=== PATIENT | female | born 1980 | race Caucasian/White ===

== ENCOUNTER 2017-02-16 09:44 | Inpatient (IN) | payer OTHER ==
[~2017-02-16] VITALS: Ht 165.1 cm; Wt 133.1 kg
[2017-02-16 09:44] VITALS: BP 129/77
[~2017-02-16 09:44] MED LIST: ALBUTEROL0.09 MG/A1 INH; BIAXIN500 MG PO; CELEXA40 MG PO; HYDR12.5C PO; HYDROCODONE BIT1 T11 PO; METFORMIN1000 MG PO; NAPROSYN375 MG PO; NORCET 500 MG-51 CAP PO; PRENATAL1 TA1 PO; PRILOSEC20 MG PO; PROVENTIL0.09 MG/AC IH
[2017-02-16] MEDS ORDERED: METFORMIN HCL1000 MG PO (09:56)
[2017-02-16] MEDS ORDERED: IBU800 M1 PO (09:56)
[2017-02-16] MEDS ORDERED: FAMOTIDINE40 MG PO (09:56)
[2017-02-16] MEDS ORDERED: HYDROCHLOROTH12.5 M3 PO (09:57)
[2017-02-16 10:06] LABS: BASO # 0.1 10*3/uL (0.0-0.1); BASO % 0.9 % (0.0-1.0); EOS # 0.4 10*3/uL (0.0-0.4); EOS % 4.3 % (1.0-4.0); LYMPH # 3.2 10*3/uL (1.3-4.4); MEAN CELL VOLUME 89.5 fl (81.0-99.0); MEAN CORPUSCULAR HGB 30.6 pg (27.0-31.0); MEAN CORPUSCULAR HGB CONC 34.1 g/dl (33.0-37.0); MEAN PLATELET VOLUME 9.5 fl (9.6-12.3); MONO # 0.6 10*3/uL (0.1-1.0); NEUT # 4.9 10*3/uL (2.3-7.9); NEUT % 53.5 % (47.0-73.0); PLATELET COUNT AUTOMATED 248 10*3/uL (130-400); RED BLOOD COUNT 4.58 10*6/uL (4.10-5.10); RED CELL DISTRI WIDTH 12.7 % (0-14.5); WHITE BLOOD COUNT 9.1 10*3/uL (4.8-10.8)
[2017-02-16 10:15] LABS: PROTHROMBIN TIME 10.4 SECONDS (9.0-12.4)
[2017-02-16 10:23] LABS: ALBUMIN 3.2 gm/dl (3.1-4.5); ALKALINE PHOSPHATASE 84 U/L (45-117); BILIRUBIN, TOTAL 1.7 mg/dl (0.2-1.0); BUN 11 mg/dl (7-24); CARBON DIOXIDE 28 mmol/L (21-32); CHLORIDE 103 mmol/L (98-107); EST GLOM FILT AFRICAN AMERICAN > 60 ml/min; GLUCOSE 163 mg/dL (65-99); MAGNESIUM 1.9 mg/dL (1.5-2.1); POTASSIUM 3.5 mmol/L (3.5-5.1); SGOT/AST 46 IU/L (3-35); SGPT/ALT 66 U/L (12-78); SODIUM 140 mmol/L (136-145); TOTAL PROTEIN 7.4 gm/dL (6.4-8.2)
[2017-02-16 10:27] LABS: TROPONIN I < 0.015 ng/ml (<0.045)
[2017-02-16 11:55] VITALS: BP 133/74
[2017-02-16 12:15] VITALS: BP 130/70
[2017-02-16] MEDS ORDERED: CELEXA40 MG PO (12:33)
[2017-02-16 16:00] VITALS: BP 126/88
[2017-02-16 18:40] LABS: BILIRUBIN 1+ (NEGATIVE); BLOOD 2+ (NEGATIVE); CLARITY SL CLOUDY (CLEAR); COLOR YELLOW (YELLOW); GLUCOSE NEGATIVE (NEGATIVE); KETONE NEGATIVE (NEGATIVE); LEUKO ESTERASE NEGATIVE (NEGATIVE); NITRITE NEGATIVE (NEGATIVE); PH 5.5 (5.0-9.0); PROTEIN NEGATIVE (NEGATIVE); SPECIFIC GRAVITY >= 1.030 (1.005-1.030); UROBILINOGEN 0.2 E.U./dl (0.2-1.0)
[2017-02-16 18:47] LABS: BACTERIA 2+; EPITHELIAL CELLS 15-20
[2017-02-16 18:48] LABS: MUCOUS TRACE; URINE REFLEX COMMENT YES (NO)
[2017-02-16 20:00] VITALS: BP 117/57
[2017-02-17] VITALS: BP 103/56
[2017-02-17 06:51] LABS: BASO # 0.1 10*3/uL (0.0-0.1); BASO % 0.7 % (0.0-1.0); EOS # 0.5 10*3/uL (0.0-0.4); EOS % 5.1 % (1.0-4.0); HEMATOCRIT 40.3 % (37.0-47.0); HEMOGLOBIN 13.5 g/dl (12.0-16.0); LYMPH # 3.2 10*3/uL (1.3-4.4); LYMPH % 31.9 % (27.0-41.0); MEAN CORPUSCULAR HGB 30.1 pg (27.0-31.0); MEAN CORPUSCULAR HGB CONC 33.5 g/dl (33.0-37.0); MEAN PLATELET VOLUME 9.8 fl (9.6-12.3); MONO # 0.5 10*3/uL (0.1-1.0); MONO % 5.3 % (3.0-9.0); NEUT # 5.7 10*3/uL (2.3-7.9); NEUT % 56.6 % (47.0-73.0); PLATELET COUNT AUTOMATED 222 10*3/uL (130-400); RED BLOOD COUNT 4.48 10*6/uL (4.10-5.10); RED CELL DISTRI WIDTH 12.8 % (0-14.5)
[2017-02-17 07:06] LABS: HEMOGLOBIN A1c 7.7 % (4.8-5.6)
[2017-02-17 07:28] LABS: PROTHROMBIN TIME 10.3 SECONDS (9.0-12.4)
[2017-02-17 07:29] LABS: CHLORIDE 103 mmol/L (98-107); CHOLESTEROL 221 mg/dL (<200); POTASSIUM 3.8 mmol/L (3.5-5.1); SODIUM 138 mmol/L (136-145)
[2017-02-17 07:37] LABS: ALKALINE PHOSPHATASE 74 U/L (45-117); BILIRUBIN, TOTAL 1.7 mg/dl (0.2-1.0); BUN 15 mg/dl (7-24); CARBON DIOXIDE 29 mmol/L (21-32); EST GLOM FILT AFRICAN AMERICAN > 60 ml/min; FREE T4 1.16 ng/dl (0.76-1.46); GLUCOSE 152 mg/dL (65-99); HDL CHOLESTEROL 40 mg/dl (40-60); LDL CHOLESTEROL 145 mg/dL (9-159); MAGNESIUM 2.5 mg/dL (1.5-2.1); SGOT/AST 36 IU/L (3-35); SGPT/ALT 58 U/L (12-78); TRIGLYCERIDES 179 mg/dl (<150); VLDL CHOLESTEROL 36 mg/dL (6-40)
[2017-02-17 07:49] LABS: FOLIC ACID 10.91 ng/mL (>5.38); VITAMIN D, 25-HYDROXY 23.2 ng/mL (30-100)
[2017-02-17 08:00] VITALS: BP 107/55
[2017-02-17 12:00] VITALS: BP 142/70
[2017-02-17 16:00] VITALS: BP 136/66
[2017-02-17 20:00] VITALS: BP 118/64
[2017-02-18] VITALS: BP 119/63
[2017-02-18 06:30] LABS: BASO # 0.1 10*3/uL (0.0-0.1); BASO % 0.7 % (0.0-1.0); EOS # 0.4 10*3/uL (0.0-0.4); HEMATOCRIT 42.2 % (37.0-47.0); HEMOGLOBIN 13.9 g/dl (12.0-16.0); LYMPH # 3.4 10*3/uL (1.3-4.4); LYMPH % 38.5 % (27.0-41.0); MEAN CELL VOLUME 90.6 fl (81.0-99.0); MEAN CORPUSCULAR HGB 29.8 pg (27.0-31.0); MEAN CORPUSCULAR HGB CONC 32.9 g/dl (33.0-37.0); MEAN PLATELET VOLUME 9.8 fl (9.6-12.3); MONO # 0.6 10*3/uL (0.1-1.0); MONO % 6.4 % (3.0-9.0); NEUT # 4.3 10*3/uL (2.3-7.9); NEUT % 49.1 % (47.0-73.0); PLATELET COUNT AUTOMATED 225 10*3/uL (130-400); RED BLOOD COUNT 4.66 10*6/uL (4.10-5.10); RED CELL DISTRI WIDTH 12.8 % (0-14.5); WHITE BLOOD COUNT 8.8 10*3/uL (4.8-10.8)
[2017-02-18 06:48] LABS: BUN 13 mg/dl (7-24); CARBON DIOXIDE 31 mmol/L (21-32); CHLORIDE 102 mmol/L (98-107); EST GLOM FILT AFRICAN AMERICAN > 60 ml/min; GLUCOSE 141 mg/dL (65-99); SODIUM 139 mmol/L (136-145)
[2017-02-18 08:00] VITALS: BP 117/59
[2017-02-18] MEDS ORDERED: VITAMIN D1000 IU PO (11:15)
[2017-02-18 12:00] VITALS: BP 125/68
== END 2017-02-18 13:07 | disposition home or self-care (01) | DRG 313 ==
LOC: ED 09:44 → EDHOLD 11:48 → 4E 11:48
PROVIDERS: Hospitalist; Internal Medicine; Physician Assistant
DX: R07.82 Intercostal pain (principal); Z68.42 Body mass index [BMI] 45.0-49.9, adult; K76.0 Fatty (change of) liver, not elsewhere classified; E66.01 Morbid (severe) obesity due to excess calories; E28.2 Polycystic ovarian syndrome; I10 Essential (primary) hypertension; K21.9 Gastro-esophageal reflux disease without esophagitis; E55.9 Vitamin D deficiency, unspecified; E11.9 Type 2 diabetes mellitus without complications; N20.0 Calculus of kidney; Z83.3 Family history of diabetes mellitus; Z82.3 Family history of stroke; Z79.84 Long term (current) use of oral hypoglycemic drugs; Z79.899 Other long term (current) drug therapy

== ENCOUNTER 2017-03-13 10:37 | Emergency (ER) | payer OTHER ==
[~2017-03-13] VITALS: Ht 162.5 cm; Wt 104.3 kg
[~2017-03-13 10:37] MED LIST changes: +FAMOTIDINE40 MG PO; +HYDROCHLOROTH12.5 M3 PO; +IBU800 M1 PO; +METFORMIN HCL1000 MG PO; +VITAMIN D1000 IU PO
[2017-03-13] MEDS ORDERED: NAPROSYN500 MG PO (10:54)
== END 2017-03-13 11:36 | disposition home or self-care (01) ==
LOC: ED 10:37
DX: G56.01 Carpal tunnel syndrome, right upper limb (principal); Z79.899 Other long term (current) drug therapy

== ENCOUNTER 2017-04-21 23:50 | Inpatient (IN) | payer OTHER ==
[~2017-04-21] VITALS: Ht 162.5 cm; Wt 131.5 kg
[2017-04-21 23:50] VITALS: BP 154/72
[~2017-04-21 23:50] MED LIST changes: +NAPROSYN500 MG PO
[2017-04-22] VITALS (12 sets, daily range): BP systolic 126–151; BP diastolic 63–90
[2017-04-22 00:11] LABS: BASO # 0.1 10*3/uL (0.0-0.1); BASO % 0.7 % (0.0-1.0); EOS # 0.3 10*3/uL (0.0-0.4); EOS % 2.7 % (1.0-4.0); HEMATOCRIT 43.8 % (37.0-47.0); HEMOGLOBIN 14.4 g/dl (12.0-16.0); LYMPH # 4.7 10*3/uL (1.3-4.4); LYMPH % 41.5 % (27.0-41.0); MEAN CELL VOLUME 90.9 fl (81.0-99.0); MEAN CORPUSCULAR HGB 29.9 pg (27.0-31.0); MEAN CORPUSCULAR HGB CONC 32.9 g/dl (33.0-37.0); MONO # 0.7 10*3/uL (0.1-1.0); NEUT # 5.6 10*3/uL (2.3-7.9); NEUT % 48.7 % (47.0-73.0); PLATELET COUNT AUTOMATED 245 10*3/uL (130-400); RED BLOOD COUNT 4.82 10*6/uL (4.10-5.10); RED CELL DISTRI WIDTH 12.6 % (0-14.5); WHITE BLOOD COUNT 11.4 10*3/uL (4.8-10.8)
[2017-04-22 00:22] LABS: ACT PARTIAL THROMBO TIME 24.3 SECONDS (20.8-31.5)
[2017-04-22 00:29] LABS: ALBUMIN 3.4 gm/dl (3.1-4.5); ALKALINE PHOSPHATASE 82 U/L (45-117); BUN 13 mg/dl (7-24); CHLORIDE 105 mmol/L (98-107); CREATININE 1.03 mg/dL (0.55-1.02); MAGNESIUM 1.8 mg/dL (1.5-2.1); POTASSIUM 3.7 mmol/L (3.5-5.1); SGOT/AST 29 IU/L (3-35); SGPT/ALT 50 U/L (12-78); SODIUM 140 mmol/L (136-145); TOTAL PROTEIN 7.4 gm/dL (6.4-8.2)
[2017-04-22 00:30] LABS: TROPONIN I < 0.015 ng/ml (<0.045)
[2017-04-22 02:24] LABS: BILIRUBIN NEGATIVE (NEGATIVE); BLOOD NEGATIVE (NEGATIVE); CLARITY SL CLOUDY (CLEAR); COLOR YELLOW (YELLOW); GLUCOSE NEGATIVE (NEGATIVE); KETONE NEGATIVE (NEGATIVE); LEUKO ESTERASE NEGATIVE (NEGATIVE); NITRITE NEGATIVE (NEGATIVE); UROBILINOGEN 0.2 E.U./dl (0.2-1.0)
[2017-04-22 02:30] LABS: BACTERIA 3+
[2017-04-22 06:26] LABS: BASO # 0.1 10*3/uL (0.0-0.1); BASO % 0.6 % (0.0-1.0); EOS # 0.4 10*3/uL (0.0-0.4); EOS % 3.7 % (1.0-4.0); HEMATOCRIT 39.3 % (37.0-47.0); HEMOGLOBIN 13.1 g/dl (12.0-16.0); LYMPH # 3.7 10*3/uL (1.3-4.4); LYMPH % 37.9 % (27.0-41.0); MEAN CORPUSCULAR HGB 30.3 pg (27.0-31.0); MEAN CORPUSCULAR HGB CONC 33.3 g/dl (33.0-37.0); MEAN PLATELET VOLUME 9.4 fl (9.6-12.3); MONO # 0.5 10*3/uL (0.1-1.0); MONO % 5.3 % (3.0-9.0); NEUT # 5.1 10*3/uL (2.3-7.9); NEUT % 52.3 % (47.0-73.0); PLATELET COUNT AUTOMATED 200 10*3/uL (130-400); RED BLOOD COUNT 4.32 10*6/uL (4.10-5.10); RED CELL DISTRI WIDTH 12.6 % (0-14.5); WHITE BLOOD COUNT 9.8 10*3/uL (4.8-10.8)
[2017-04-22 06:44] LABS: ALBUMIN 3.1 gm/dl (3.1-4.5); ALKALINE PHOSPHATASE 72 U/L (45-117); BUN 13 mg/dl (7-24); CHLORIDE 106 mmol/L (98-107); CHOLESTEROL 207 mg/dL (<200); CREATININE 0.85 mg/dL (0.55-1.02); HDL CHOLESTEROL 34 mg/dl (40-60); LDL CHOLESTEROL 127 mg/dL (9-159); MAGNESIUM 1.8 mg/dL (1.5-2.1); PHOSPHOROUS 3.6 mg/dL (2.5-4.9); POTASSIUM 3.8 mmol/L (3.5-5.1); SGOT/AST 26 IU/L (3-35); SGPT/ALT 45 U/L (12-78); SODIUM 139 mmol/L (136-145); TOTAL PROTEIN 6.8 gm/dL (6.4-8.2); TRIGLYCERIDES 232 mg/dl (<150); VLDL CHOLESTEROL 46 mg/dL (6-40)
[2017-04-22 06:46] LABS: FREE T4 1.28 ng/dl (0.76-1.46)
[2017-04-22 06:47] LABS: CKMB 1.2 ng/ml (0.5-3.6)
[2017-04-22 06:56] LABS: ACT PARTIAL THROMBO TIME 25.4 SECONDS (20.8-31.5)
--- NOTE | 2017-04-22 07:10 | NUR ---
REPORT FROM [facility] AT THIS TIME.
--- NOTE | 2017-04-22 07:40 | NUR ---
PATIENT SLEEPING AT THIS TIME. VITAS STABLE AND DOCUMTED. PATIENT ON FILTER TENDER. IV LINE PATENT AND FLUSHES WELL.
[2017-04-22 08:24] LABS: VITAMIN D, 25-HYDROXY 17.3 ng/mL (30-100)
--- NOTE | 2017-04-22 09:46 | NUR ---
PATIENT RESTING IN ROOM. REPORTS CHEST PAIN /, BUT STATES PAIN IS BETTER THAN IT WAS. VITALS STABLE AND DOCUMENTED.
--- NOTE | 2017-04-22 11:45 | NUR ---
A 37, admitted to , under the services of KYAW Horne DO with a diagnosis of chest pain. Chief complaint is chest pain. Patient arrived via stretcher from ER. Monitor applied. Initial assessment completed. Vital signs taken and recorded. KYAW HORNE DO notified of admission to the unit. Orders received. See assessment for past medical history, medications and allergies. Patient and/or family oriented to unit. [address] visitation policy reviewed. Clothing/patient valuable form completed. CAROL JEFF
[2017-04-22] MEDS ORDERED: LIPITOR40 MG PO (12:16)
--- NOTE | 2017-04-22 15:05 | NUR ---
Discharge instructions reviewed with patient/family. Patient receptive and verbalizes understanding. Follow-up care arranged. Written instructions given to patient/family. CAROL JEFF
== END 2017-04-22 15:05 | disposition home or self-care (01) | DRG 682 ==
LOC: ED 23:50 → 4E 04-22 00:48 → EDHOLD 04-22 00:48 → 4E 04-22 11:15
PROVIDERS: Hospitalist; Student in an Organized Health Care Education/Training Program; ADMIT Internal Medicine
DX: N17.0 Acute kidney failure with tubular necrosis (principal); J18.9 Pneumonia, unspecified organism; E44.0 Moderate protein-calorie malnutrition; K76.0 Fatty (change of) liver, not elsewhere classified; Z68.42 Body mass index [BMI] 45.0-49.9, adult; K21.9 Gastro-esophageal reflux disease without esophagitis; F41.9 Anxiety disorder, unspecified; R07.89 Other chest pain; E55.9 Vitamin D deficiency, unspecified; E28.2 Polycystic ovarian syndrome; R94.31 Abnormal electrocardiogram [ECG] [EKG]; E78.2 Mixed hyperlipidemia; E66.01 Morbid (severe) obesity due to excess calories; E11.9 Type 2 diabetes mellitus without complications; Z79.84 Long term (current) use of oral hypoglycemic drugs; Z79.899 Other long term (current) drug therapy; Z83.3 Family history of diabetes mellitus; Z82.3 Family history of stroke; Z80.9 Family history of malignant neoplasm, unspecified

== ENCOUNTER 2017-05-08 18:21 | Emergency (ER) | payer OTHER ==
[~2017-05-08 18:21] MED LIST changes: +LIPITOR40 MG PO
[2017-05-08] MEDS ORDERED: AMOXICILLIN500 M2 PO (19:07)
[2017-05-08] MEDS ORDERED: PREDNISONE20 M1 PO (19:07)
== END 2017-05-08 19:12 | disposition home or self-care (01) ==
LOC: ED 18:21
DX: J02.9 Acute pharyngitis, unspecified (principal); Z79.899 Other long term (current) drug therapy

== ENCOUNTER → 2017-05-14 | Outpatient (CLI) | payer OTHER ==
[~2017-05-14] MED LIST changes: +AMOXICILLIN500 M2 PO; +PREDNISONE20 M1 PO
[2017-05-14 12:25] LABS: BASO # 0.1 10*3/uL (0.0-0.1); BASO % 0.8 % (0.0-1.0); EOS # 0.5 10*3/uL (0.0-0.4); EOS % 4.5 % (1.0-4.0); HEMATOCRIT 42.9 % (37.0-47.0); HEMOGLOBIN 14.3 g/dl (12.0-16.0); LYMPH # 3.8 10*3/uL (1.3-4.4); LYMPH % 36.5 % (27.0-41.0); MEAN CELL VOLUME 90.5 fl (81.0-99.0); MEAN CORPUSCULAR HGB 30.2 pg (27.0-31.0); MEAN CORPUSCULAR HGB CONC 33.3 g/dl (33.0-37.0); MONO # 0.6 10*3/uL (0.1-1.0); MONO % 5.3 % (3.0-9.0); NEUT # 5.4 10*3/uL (2.3-7.9); NEUT % 51.9 % (47.0-73.0); PLATELET COUNT AUTOMATED 243 10*3/uL (130-400); RED BLOOD COUNT 4.74 10*6/uL (4.10-5.10); RED CELL DISTRI WIDTH 12.5 % (0-14.5); WHITE BLOOD COUNT 10.3 10*3/uL (4.8-10.8)
[2017-05-14 12:27] LABS: ALBUMIN 3.3 gm/dl (3.1-4.5); ALKALINE PHOSPHATASE 77 U/L (45-117); BUN 11 mg/dl (7-24); CHLORIDE 102 mmol/L (98-107); CREATININE 0.94 mg/dL (0.55-1.02); POTASSIUM 3.7 mmol/L (3.5-5.1); SGOT/AST 31 IU/L (3-35); SGPT/ALT 45 U/L (12-78); SODIUM 138 mmol/L (136-145); TOTAL PROTEIN 7.2 gm/dL (6.4-8.2)
[2017-05-15 08:11] LABS: DHEA SULFATE 004020 35.7 ug/dL (57.3-279.2); FOLLICLE STIMULATING HORMONE 5.7 mIU/mL (.); LUTEINIZING HORMONE 004283 12.7 mIU/mL (.); PROLACTIN 004465 11.3 ng/mL (4.8-23.3)
== END | disposition home or self-care (01) ==
LOC: LAB 11:19
PROVIDERS: Family Medicine Adult Medicine
DX: E28.2 Polycystic ovarian syndrome (principal)

== ENCOUNTER 2017-12-08 09:16 | Emergency (ER) | payer OTHER ==
[~2017-12-08] VITALS: Ht 162.5 cm; Wt 104.3 kg
[2017-12-08 10:11] LABS: BILIRUBIN NEGATIVE (NEGATIVE); BLOOD 3+ (NEGATIVE); CLARITY CLOUDY (CLEAR); COLOR YELLOW (YELLOW); GLUCOSE NEGATIVE (NEGATIVE); KETONE NEGATIVE (NEGATIVE); NITRITE NEGATIVE (NEGATIVE); PH 5.5 (5.0-9.0); SPECIFIC GRAVITY >= 1.030 (1.005-1.030); UROBILINOGEN 0.2 E.U./dl (0.2-1.0)
[2017-12-08 10:12] LABS: BASO # 0.1 10*3/uL (0.0-0.1); BASO % 0.9 % (0.0-1.0); EOS # 0.3 10*3/uL (0.0-0.4); EOS % 2.8 % (1.0-4.0); HEMOGLOBIN 14.1 g/dl (12.0-16.0); LYMPH # 2.9 10*3/uL (1.3-4.4); LYMPH % 29.8 % (27.0-41.0); MEAN CELL VOLUME 90.3 fl (81.0-99.0); MEAN PLATELET VOLUME 9.5 fl (9.6-12.3); MONO # 0.7 10*3/uL (0.1-1.0); NEUT # 5.8 10*3/uL (2.3-7.9); PLATELET COUNT AUTOMATED 284 10*3/uL (130-400); RED BLOOD COUNT 4.87 10*6/uL (4.10-5.10); RED CELL DISTRI WIDTH 12.9 % (0-14.5); WHITE BLOOD COUNT 9.8 10*3/uL (4.8-10.8)
[2017-12-08 10:24] LABS: LEUKO ESTERASE NEGATIVE (NEGATIVE)
[2017-12-08 10:24] LABS: ALBUMIN 3.4 gm/dl (3.1-4.5); ALKALINE PHOSPHATASE 79 U/L (45-117); BUN 12 mg/dl (7-24); CHLORIDE 104 mmol/L (98-107); CREATININE 1.11 mg/dL (0.55-1.02); LIPASE 68 U/L (73-393); SGOT/AST 21 IU/L (3-35); SGPT/ALT 32 U/L (12-78); SODIUM 140 mmol/L (136-145); TOTAL PROTEIN 7.8 gm/dL (6.4-8.2)
[2017-12-08 10:25] LABS: BACTERIA 1+; CALCIUM OXALATE CRYSTALS 3+; RBC 41-50 rbc/hpf (0-2)
[2017-12-08] MEDS ORDERED: KETOROLAC10 MG PO (12:08)
[2017-12-08] MEDS ORDERED: FLOMAX0.4 MG PO (12:08)
== END 2017-12-08 12:30 | disposition home or self-care (01) ==
LOC: ED 09:16
PROVIDERS: Nurse Practitioner Family
DX: N20.0 Calculus of kidney (principal); R10.11 Right upper quadrant pain; E11.9 Type 2 diabetes mellitus without complications; K21.9 Gastro-esophageal reflux disease without esophagitis; I10 Essential (primary) hypertension; E66.01 Morbid (severe) obesity due to excess calories; E78.00 Pure hypercholesterolemia, unspecified; Z79.899 Other long term (current) drug therapy

== ENCOUNTER → 2018-01-20 | Outpatient (CLI) | payer OTHER ==
[~2018-01-20] MED LIST changes: +BENADRYL25 M2 PO; +CEFADROXIL500 M1 PO; +FLOMAX0.4 MG PO; +KETOROLAC10 MG PO
[2018-01-20 09:23] LABS: BUN 11 mg/dl (7-24); CHLORIDE 106 mmol/L (98-107); CREATININE 1.06 mg/dL (0.55-1.02); SODIUM 142 mmol/L (136-145)
[2018-01-20 09:25] LABS: POTASSIUM 4.1 mmol/L (3.5-5.1)
== END ==
LOC: LAB 08:11
PROVIDERS: Nurse Practitioner Primary Care
DX: R60.9 Edema, unspecified (principal)

== ENCOUNTER 2018-02-20 16:05 | Emergency (ER) | payer OTHER ==
[~2018-02-20] VITALS: Ht 162.5 cm; Wt 99.8 kg
[~2018-02-20 16:05] MED LIST changes: -BENADRYL25 M2 PO; -CEFADROXIL500 M1 PO
[2018-02-20] MEDS ORDERED: CEFADROXIL500 M1 PO (16:12)
[2018-02-20] MEDS ORDERED: BENADRYL25 M2 PO (16:12)
== END 2018-02-20 16:30 | disposition home or self-care (01) ==
LOC: ED 16:05
DX: S80.861A Insect bite (nonvenomous), right lower leg, initial encounter (principal); Z79.899 Other long term (current) drug therapy; W57.XXXA Bitten or stung by nonvenomous insect and other nonvenomous arthropods, initial encounter; Y93.89 Activity, other specified; Y92.89 Other specified places as the place of occurrence of the external cause; Y99.8 Other external cause status

== ENCOUNTER 2018-04-05 10:53 | Emergency (ER) | payer OTHER ==
[~2018-04-05] VITALS: Wt 99.8 kg
[~2018-04-05 10:53] MED LIST changes: +BENADRYL25 M2 PO; +CEFADROXIL500 M1 PO
[2018-04-05 11:47] LABS: BASO # 0.1 10*3/uL (0.0-0.1); BASO % 0.7 % (0.0-1.0); EOS # 0.5 10*3/uL (0.0-0.4); EOS % 4.3 % (1.0-4.0); HEMATOCRIT 43.2 % (37.0-47.0); HEMOGLOBIN 14.1 g/dl (12.0-16.0); LYMPH # 2.8 10*3/uL (1.3-4.4); LYMPH % 22.2 % (27.0-41.0); MEAN CELL VOLUME 90.2 fl (81.0-99.0); MEAN CORPUSCULAR HGB 29.4 pg (27.0-31.0); MEAN CORPUSCULAR HGB CONC 32.6 g/dl (33.0-37.0); MEAN PLATELET VOLUME 9.7 fl (9.6-12.3); MONO # 0.6 10*3/uL (0.1-1.0); MONO % 4.7 % (3.0-9.0); NEUT # 8.4 10*3/uL (2.3-7.9); NEUT % 67.5 % (47.0-73.0); PLATELET COUNT AUTOMATED 268 10*3/uL (130-400); RED BLOOD COUNT 4.79 10*6/uL (4.10-5.10); RED CELL DISTRI WIDTH 13.1 % (0-14.5); WHITE BLOOD COUNT 12.5 10*3/uL (4.8-10.8)
[2018-04-05 12:04] LABS: ALBUMIN 3.4 gm/dl (3.1-4.5); ALKALINE PHOSPHATASE 78 U/L (45-117); BETA-HCG, QUANT < 1.0 mIU/mL (1-3); BUN 11 mg/dl (7-24); CHLORIDE 104 mmol/L (98-107); CREATININE 1.23 mg/dL (0.55-1.02); LIPASE 73 U/L (73-393); POTASSIUM 3.5 mmol/L (3.5-5.1); SGOT/AST 18 IU/L (3-35); SGPT/ALT 27 U/L (12-78); SODIUM 139 mmol/L (136-145)
[2018-04-05 13:09] LABS: BILIRUBIN 1+ (NEGATIVE); BLOOD 2+ (NEGATIVE); CLARITY CLOUDY (CLEAR); COLOR YELLOW (YELLOW); GLUCOSE NEGATIVE (NEGATIVE); KETONE NEGATIVE (NEGATIVE); LEUKO ESTERASE 2+ (NEGATIVE); NITRITE POSITIVE (NEGATIVE); SPECIFIC GRAVITY >= 1.030 (1.005-1.030)
[2018-04-05 13:22] LABS: BACTERIA 2+; WBC TNTC wbc/hpf (0-5)
[2018-04-05] MEDS ORDERED: CIPRO500 MG PO (14:54)
[2018-04-05] MEDS ORDERED: FLOMAX0.4 MG PO (14:54)
[2018-04-05] MEDS ORDERED: NORCO 5-325 TA1 EACH PO (14:54)
[2018-04-05] MEDS ORDERED: IBUPROFEN600 MG PO (14:54)
[2018-04-05] MEDS ORDERED: PHENERGAN25 M3 PO (14:54)
== END 2018-04-05 15:03 | disposition home or self-care (01) ==
LOC: ED 10:53
PROVIDERS: Emergency Medicine
DX: N20.1 Calculus of ureter (principal); A59.01 Trichomonal vulvovaginitis; E11.9 Type 2 diabetes mellitus without complications; I10 Essential (primary) hypertension; K21.9 Gastro-esophageal reflux disease without esophagitis; E78.00 Pure hypercholesterolemia, unspecified; E78.2 Mixed hyperlipidemia; E66.01 Morbid (severe) obesity due to excess calories; Z87.442 Personal history of urinary calculi; Z79.899 Other long term (current) drug therapy

== ENCOUNTER 2018-11-03 12:46 | Emergency (ER) | payer OTHER ==
[~2018-11-03] VITALS: Ht 162.5 cm; Wt 99.8 kg
--- NOTE | ~2018-11-03 | EKG ---
[place], [place] ELECTROCARDIOGRAM REPORT NAME: MARTIN RODRIGUEZ UNIT #: [id number] ROOM: [facility] RE[facility] BIRTHDATE: [birth year] [facility] Test Date: 2018-11-03 Test Time: 13:48:45 Pat Name: MARTIN RODRIGUEZ Department: Room: Gender: F Manager Center: [facility] : 1980 Requested By: KYAW ZAMORA Order Number: [id number] Reading MD: Mahsa Ayala MD Measurements Intervals [place] Rate: 67 P: 5 VT: 157 QRS: 7 QRSD: 114 T: -8 QT: 409 QTc: 432 Interpretive Statements Sinus rhythm Possiblle anterior infarct, age indeterminate Minimal ST depression in V3-6, consider ischemia Electronically Signed On 11-03-2018 13:28:51 PDT by Mahsa Ayala MD CM:EKGRPT:ELECTROCARDIOGRAM REPORT [id number] KYAW MONTANEZ DRAFT REPORT KYAW ZAMORA DO
[~2018-11-03 12:46] MED LIST changes: +CIPRO500 MG PO; +IBUPROFEN600 MG PO; +NORCO 5-325 TA1 EACH PO; +PHENERGAN25 M3 PO
[2018-11-03 13:08] LABS: BILIRUBIN NEGATIVE (NEGATIVE); BLOOD NEGATIVE (NEGATIVE); CLARITY SL CLOUDY (CLEAR); COLOR YELLOW (YELLOW); GLUCOSE NEGATIVE (NEGATIVE); KETONE TRACE (NEGATIVE); LEUKO ESTERASE NEGATIVE (NEGATIVE); NITRITE NEGATIVE (NEGATIVE); PH 5.5 (5.0-9.0); SPECIFIC GRAVITY 1.025 (1.005-1.030); UROBILINOGEN 0.2 E.U./dl (0.2-1.0)
[2018-11-03 13:24] LABS: EPITHELIAL CELLS TNTC; RBC 0-2 rbc/hpf (0-2)
[2018-11-03 14:01] LABS: BASO # 0.1 10*3/uL (0.0-0.1); BASO % 0.8 % (0.0-1.0); EOS # 0.3 10*3/uL (0.0-0.4); EOS % 3.8 % (1.0-4.0); HEMATOCRIT 43.6 % (37.0-47.0); HEMOGLOBIN 14.3 g/dl (12.0-16.0); LYMPH # 3.5 10*3/uL (1.3-4.4); LYMPH % 39.1 % (27.0-41.0); MEAN CELL VOLUME 90.1 fl (81.0-99.0); MEAN CORPUSCULAR HGB 29.5 pg (27.0-31.0); MEAN CORPUSCULAR HGB CONC 32.8 g/dl (33.0-37.0); MEAN PLATELET VOLUME 9.7 fl (9.6-12.3); MONO # 0.6 10*3/uL (0.1-1.0); MONO % 7.1 % (3.0-9.0); NEUT # 4.3 10*3/uL (2.3-7.9); PLATELET COUNT AUTOMATED 253 10*3/uL (130-400); RED BLOOD COUNT 4.84 10*6/uL (4.10-5.10); RED CELL DISTRI WIDTH 12.9 % (0-14.5); WHITE BLOOD COUNT 8.9 10*3/uL (4.8-10.8)
[2018-11-03 14:05] LABS: INTERNATIONAL NORM RATIO 0.9 (2.0-3.5)
[2018-11-03 14:17] LABS: ALBUMIN 3.2 gm/dl (3.1-4.5); ALKALINE PHOSPHATASE 82 U/L (45-117); BUN 9 mg/dl (7-24); CHLORIDE 104 mmol/L (98-107); CREATININE 0.96 mg/dL (0.55-1.02); LIPASE 87 U/L (73-393); POTASSIUM 3.6 mmol/L (3.5-5.1); SGOT/AST 13 IU/L (3-35); SGPT/ALT 23 U/L (12-78); SODIUM 139 mmol/L (136-145); TOTAL PROTEIN 7.4 gm/dL (6.4-8.2)
[2018-11-03 14:18] LABS: BETA-HCG, QUANT < 1.0 mIU/mL (1-3); TROPONIN I < 0.015 ng/ml (<0.045)
[2018-11-03] MEDS ORDERED: FLOMAX0.4 MG PO (15:26)
[2018-11-03] MEDS ORDERED: TRAMADOL HCL50 MG PO (15:27)
[2018-12-13] MEDS ORDERED: IBUPROFEN600 MG PO (11:05)
== END 2018-11-03 15:32 | disposition home or self-care (01) ==
LOC: ED 12:46
PROVIDERS: Internal Medicine
DX: N20.0 Calculus of kidney (principal); E11.9 Type 2 diabetes mellitus without complications; I10 Essential (primary) hypertension; K21.9 Gastro-esophageal reflux disease without esophagitis; E78.2 Mixed hyperlipidemia; E66.01 Morbid (severe) obesity due to excess calories; Z87.442 Personal history of urinary calculi; Z79.2 Long term (current) use of antibiotics; Z79.899 Other long term (current) drug therapy

== ENCOUNTER 2019-05-03 13:04 | Emergency (ER) | payer OTHER ==
[~2019-05-03] VITALS: Ht 162.5 cm; Wt 122.5 kg
[~2019-05-03 13:04] MED LIST changes: +TRAMADOL HCL50 MG PO
[2019-05-03 13:42] LABS: BILIRUBIN NEGATIVE (NEGATIVE); BLOOD NEGATIVE (NEGATIVE); CLARITY SL CLOUDY (CLEAR); COLOR YELLOW (YELLOW); GLUCOSE NEGATIVE (NEGATIVE); KETONE NEGATIVE (NEGATIVE); LEUKO ESTERASE NEGATIVE (NEGATIVE); NITRITE NEGATIVE (NEGATIVE); PH 5.5 (5.0-9.0); SPECIFIC GRAVITY 1.025 (1.005-1.030); UROBILINOGEN 0.2 E.U./dl (0.2-1.0)
[2019-05-03 13:46] LABS: BASO # 0.1 10*3/uL (0.0-0.1); EOS # 0.5 10*3/uL (0.0-0.4); EOS % 4.8 % (1.0-4.0); HEMATOCRIT 43.9 % (37.0-47.0); HEMOGLOBIN 14.2 g/dl (12.0-16.0); LYMPH # 3.3 10*3/uL (1.3-4.4); LYMPH % 32.1 % (27.0-41.0); MEAN CELL VOLUME 91.5 fl (81.0-99.0); MEAN CORPUSCULAR HGB 29.6 pg (27.0-31.0); MEAN CORPUSCULAR HGB CONC 32.3 g/dl (33.0-37.0); MEAN PLATELET VOLUME 9.5 fl (9.6-12.3); MONO # 0.6 10*3/uL (0.1-1.0); MONO % 5.8 % (3.0-9.0); NEUT # 5.7 10*3/uL (2.3-7.9); PLATELET COUNT AUTOMATED 257 10*3/uL (130-400); RED CELL DISTRI WIDTH 13.1 % (0-14.5); WHITE BLOOD COUNT 10.2 10*3/uL (4.8-10.8)
[2019-05-03 13:50] LABS: BACTERIA TRACE; WBC 0-2 wbc/hpf (0-5)
[2019-05-03 14:01] LABS: ALBUMIN 3.2 gm/dl (3.1-4.5); ALKALINE PHOSPHATASE 80 U/L (45-117); BUN 13 mg/dl (7-24); CHLORIDE 102 mmol/L (98-107); CREATININE 0.96 mg/dL (0.55-1.02); POTASSIUM 3.8 mmol/L (3.5-5.1); SGOT/AST 10 IU/L (3-35); SGPT/ALT 23 U/L (12-78); SODIUM 136 mmol/L (136-145); TOTAL PROTEIN 7.5 gm/dL (6.4-8.2)
[2019-05-03] MEDS ORDERED: KETOROLAC10 MG PO (15:38)
== END 2019-05-03 15:45 | disposition home or self-care (01) ==
LOC: ED 13:04
PROVIDERS: Nurse Practitioner Family
DX: N20.0 Calculus of kidney (principal)

== ENCOUNTER 2019-10-04 12:33 | Emergency (ER) | payer OTHER ==
[~2019-10-04] VITALS: Wt 104.3 kg
[2019-10-04 13:58] LABS: BASO # 0.1 10*3/uL (0.0-0.1); EOS # 0.1 10*3/uL (0.0-0.4); EOS % 1.7 % (1.0-4.0); HEMATOCRIT 44.8 % (37.0-47.0); HEMOGLOBIN 14.6 g/dl (12.0-16.0); LYMPH # 0.5 10*3/uL (1.3-4.4); LYMPH % 7.8 % (27.0-41.0); MEAN CORPUSCULAR HGB 29.3 pg (27.0-31.0); MEAN CORPUSCULAR HGB CONC 32.6 g/dl (33.0-37.0); MEAN PLATELET VOLUME 9.5 fl (9.6-12.3); MONO # 0.5 10*3/uL (0.1-1.0); MONO % 8.2 % (3.0-9.0); NEUT # 4.8 10*3/uL (2.3-7.9); NEUT % 80.6 % (47.0-73.0); PLATELET COUNT AUTOMATED 226 10*3/uL (130-400); RED BLOOD COUNT 4.98 10*6/uL (4.10-5.10)
[2019-10-04 14:04] LABS: CLARITY SL CLOUDY (CLEAR); COLOR YELLOW (YELLOW)
[2019-10-04 14:05] LABS: BILIRUBIN NEGATIVE (NEGATIVE); BLOOD TRACE-INTACT (NEGATIVE); GLUCOSE NEGATIVE (NEGATIVE); KETONE NEGATIVE (NEGATIVE); LEUKO ESTERASE NEGATIVE (NEGATIVE); NITRITE NEGATIVE (NEGATIVE); UROBILINOGEN 0.2 E.U./dl (0.2-1.0)
[2019-10-04 14:06] LABS: BACTERIA 2+; MUCOUS 3+
[2019-10-04 14:38] LABS: ALBUMIN 3.5 gm/dl (3.1-4.5); ALKALINE PHOSPHATASE 89 U/L (45-117); BUN 11 mg/dl (7-24); CHLORIDE 103 mmol/L (98-107); CREATININE 1.17 mg/dL (0.55-1.02); POTASSIUM 3.4 mmol/L (3.5-5.1); SGOT/AST 29 IU/L (3-35); SGPT/ALT 38 U/L (12-78); SODIUM 135 mmol/L (136-145)
== END 2019-10-04 16:00 | disposition home or self-care (01) ==
LOC: ED 12:33
PROVIDERS: Emergency Medicine; Nurse Practitioner Family
DX: B34.9 Viral infection, unspecified (principal); K21.9 Gastro-esophageal reflux disease without esophagitis; I10 Essential (primary) hypertension

== ENCOUNTER 2020-12-21 15:48 | Emergency (ER) | payer OTHER ==
[~2020-12-21] VITALS: Ht 162.5 cm; Wt 108.9 kg
[2020-12-21] MEDS ORDERED: CLARITIN10 MG PO (16:29)
== END 2020-12-21 16:36 | disposition home or self-care (01) ==
LOC: ED 15:48
DX: H54.7 Unspecified visual loss (principal)

== ENCOUNTER → 2021-03-12 | Outpatient (CLI) | payer OTHER ==
[~2021-03-12] MED LIST changes: +CLARITIN10 MG PO
== END | disposition home or self-care (01) ==
LOC: US 02-04 09:00
PROVIDERS: ATTEND Nurse Practitioner Family
DX: K76.0 Fatty (change of) liver, not elsewhere classified (principal); E80.7 Disorder of bilirubin metabolism, unspecified; R94.5 Abnormal results of liver function studies

== ENCOUNTER → 2021-04-22 | Outpatient (CLI) | payer OTHER | END | disposition home or self-care (01) | LOC: NM 10:41 | PROVIDERS: ATTEND Nurse Practitioner Family | DX: R10.11 Right upper quadrant pain (principal) ==

== ENCOUNTER → 2021-11-18 | Outpatient (CLI) | payer OTHER | END | disposition home or self-care (01) | LOC: MAMMO 10:31 | PROVIDERS: ATTEND Nurse Practitioner Family | DX: Z12.31 Encounter for screening mammogram for malignant neoplasm of breast (principal); N63.24 Unspecified lump in the left breast, lower inner quadrant ==

== ENCOUNTER → 2021-11-24 | Outpatient (CLI) | payer OTHER | END | disposition home or self-care (01) | LOC: LAB 13:21 | PROVIDERS: ATTEND Specialist | DX: J30.9 Allergic rhinitis, unspecified (principal) ==

== ENCOUNTER → 2021-12-03 | Outpatient (CLI) | payer OTHER | END | disposition home or self-care (01) | LOC: MAMMO 09:15 | PROVIDERS: ATTEND Nurse Practitioner Family | DX: R92.8 Other abnormal and inconclusive findings on diagnostic imaging of breast (principal) ==

== ENCOUNTER 2022-04-22 10:39 | Emergency (ER) | payer OTHER ==
[~2022-04-22] VITALS: Ht 162.5 cm; Wt 129.3 kg
[2022-04-22 11:43] LABS: BASO # 0.1 10*3/uL (0.0-0.1); EOS # 0.2 10*3/uL (0.0-0.4); HEMATOCRIT 43.9 % (37.0-47.0); LYMPH # 2.5 10*3/uL (1.3-4.4); LYMPH % 31.9 % (27.0-41.0); MEAN CELL VOLUME 90.9 fl (81.0-99.0); MEAN CORPUSCULAR HGB 30.4 pg (27.0-31.0); MEAN CORPUSCULAR HGB CONC 33.5 g/dl (33.0-37.0); MEAN PLATELET VOLUME 9.4 fl (9.6-12.3); MONO # 0.4 10*3/uL (0.1-1.0); MONO % 4.4 % (3.0-9.0); NEUT # 4.7 10*3/uL (2.3-7.9); NEUT % 59.1 % (47.0-73.0); PLATELET COUNT AUTOMATED 224 10*3/uL (130-400); RED BLOOD COUNT 4.83 10*6/uL (4.10-5.10); RED CELL DISTRI WIDTH 12.4 % (0-14.5); WHITE BLOOD COUNT 7.9 10*3/uL (4.8-10.8)
[2022-04-22 11:46] LABS: BILIRUBIN Negative (Negative); BLOOD Negative (Negative); CLARITY Cloudy (Clear); COLOR Yellow (Yellow); GLUCOSE 2+ (Negative); KETONE Negative (Negative); LEUKO ESTERASE 1+ (Negative); NITRITE Negative (Negative); UROBILINOGEN 0.2 E.U./dl (0.0-1.0)
[2022-04-22 11:54] LABS: BACTERIA 1+; YEAST TRACE
[2022-04-22 12:00] LABS: ALKALINE PHOSPHATASE 87 U/L (45-117); BUN 12 mg/dl (7-24); CHLORIDE 106 mmol/L (98-107); CREATININE 1.13 mg/dL (0.55-1.02); LIPASE 81 U/L (73-393); POTASSIUM 3.8 mmol/L (3.5-5.1); SGOT/AST 27 IU/L (3-35); SGPT/ALT 45 U/L (12-78); SODIUM 138 mmol/L (136-145); TOTAL PROTEIN 7.2 gm/dL (6.4-8.2)
[2022-04-22] MEDS ORDERED: SEPTDS PO (14:30)
== END 2022-04-22 14:36 | disposition home or self-care (01) ==
LOC: ED 10:39
PROVIDERS: Physician Assistant
DX: N39.0 Urinary tract infection, site not specified (principal); M54.6 Pain in thoracic spine

== ENCOUNTER → 2022-07-21 | Outpatient (CLI) | payer OTHER ==
[~2022-07-21] MED LIST changes: +SEPTDS PO
== END | disposition home or self-care (01) ==
LOC: MAMMO 07-08 13:00 → US 07-08 13:30 → MAMMO 12:21
PROVIDERS: ATTEND Nurse Practitioner Family
DX: R92.8 Other abnormal and inconclusive findings on diagnostic imaging of breast (principal)

== ENCOUNTER 2022-12-11 18:47 | Emergency (ER) | payer OTHER ==
[~2022-12-11] VITALS: Ht 167.6 cm; Wt 95.3 kg
[2022-12-11 19:29] LABS: BILIRUBIN Negative (Negative); BLOOD Negative (Negative); CLARITY Cloudy (Clear); COLOR Yellow (Yellow); GLUCOSE Negative (Negative); KETONE Negative (Negative); LEUKO ESTERASE Trace (Negative); NITRITE Negative (Negative)
[2022-12-11 19:36] LABS: BACTERIA 1+
[2022-12-11] MEDS ORDERED: NAPROXEN250 MG PO (21:51)
[2022-12-11] MEDS ORDERED: METHOCARBAMOL750 M1 PO (21:51)
== END 2022-12-11 22:12 | disposition home or self-care (01) ==
LOC: ED 18:47
PROVIDERS: Internal Medicine
DX: S39.012A Strain of muscle, fascia and tendon of lower back, initial encounter (principal); S39.011A Strain of muscle, fascia and tendon of abdomen, initial encounter; K21.9 Gastro-esophageal reflux disease without esophagitis; I10 Essential (primary) hypertension; Z87.442 Personal history of urinary calculi; Z98.890 Other specified postprocedural states; X58.XXXA Exposure to other specified factors, initial encounter; Y93.89 Activity, other specified; Y92.009 Unspecified place in unspecified non-institutional (private) residence as the place of occurrence of the external cause; Y99.8 Other external cause status

== ENCOUNTER 2022-12-17 13:33 | Emergency (ER) | payer OTHER ==
[~2022-12-17] VITALS: Ht 162.5 cm; Wt 120.2 kg
[~2022-12-17 13:33] MED LIST changes: +METHOCARBAMOL750 M1 PO; +NAPROXEN250 MG PO
[2022-12-17 14:24] LABS: BASO # 0.1 10*3/uL (0.0-0.1); BASO % 0.7 % (0.0-1.0); EOS # 0.3 10*3/uL (0.0-0.4); EOS % 2.5 % (1.0-4.0); LYMPH # 2.9 10*3/uL (1.3-4.4); MEAN CELL VOLUME 93.1 fl (81.0-99.0); MEAN CORPUSCULAR HGB 29.9 pg (27.0-31.0); MEAN CORPUSCULAR HGB CONC 32.1 g/dl (33.0-37.0); MEAN PLATELET VOLUME 9.5 fl (9.6-12.3); MONO # 0.5 10*3/uL (0.1-1.0); NEUT # 7.8 10*3/uL (2.3-7.9); NEUT % 67.5 % (47.0-73.0); PLATELET COUNT AUTOMATED 252 10*3/uL (130-400); RED BLOOD COUNT 4.62 10*6/uL (4.10-5.10); RED CELL DISTRI WIDTH 12.9 % (0-14.5); WHITE BLOOD COUNT 11.6 10*3/uL (4.8-10.8)
[2022-12-17 14:42] LABS: BILIRUBIN Negative (Negative); BLOOD Negative (Negative); CLARITY Cloudy (Clear); COLOR Yellow (Yellow); GLUCOSE Negative (Negative); KETONE Trace (Negative); LEUKO ESTERASE Negative (Negative); NITRITE Negative (Negative); SPECIFIC GRAVITY >= 1.030 (1.001-1.030)
[2022-12-17 14:45] LABS: ALKALINE PHOSPHATASE 71 U/L (46-116); BUN 12 mg/dl (9-23); CHLORIDE 106 mmol/L (98-107); LIPASE 25 U/L (12-53); POTASSIUM 3.6 mmol/L (3.4-5.1); SGPT/ALT 21 U/L (10-49); TOTAL PROTEIN 6.8 gm/dL (6.0-8.0)
[2022-12-17 14:51] LABS: BACTERIA 1+; MUCOUS 1+
[2022-12-17] MEDS ORDERED: CEPHALEXIN500 M1 PO (15:18)
[2022-12-17] MEDS ORDERED: FLOMAX0.4 MG PO (15:18)
[2022-12-17] MEDS ORDERED: KETOROLAC10 MG PO (15:18)
== END 2022-12-17 15:26 | disposition home or self-care (01) ==
LOC: ED 13:33
PROVIDERS: Student in an Organized Health Care Education/Training Program
DX: R10.2 Pelvic and perineal pain (principal)

== ENCOUNTER 2023-02-06 18:29 | Emergency (ER) | payer SELFPAY ==
[~2023-02-06] VITALS: Ht 162.5 cm; Wt 113.4 kg
[~2023-02-06 18:29] MED LIST changes: +CEPHALEXIN500 M1 PO
[2023-02-06 19:11] LABS: BILIRUBIN Negative (Negative); BLOOD Negative (Negative); CLARITY Clear (Clear); COLOR Yellow (Yellow); GLUCOSE Negative (Negative); KETONE Trace (Negative); LEUKO ESTERASE Negative (Negative); NITRITE Negative (Negative); PH 6.5 (4.5-8.0); SPECIFIC GRAVITY >= 1.030 (1.001-1.030)
[2023-02-06 19:22] LABS: BACTERIA TRACE; MUCOUS 1+
[2023-02-06] MEDS ORDERED: KETOROLAC10 MG PO (20:18)
[2023-02-06] MEDS ORDERED: ONDANSETRON4 MG SL (20:18)
[2023-02-06] MEDS ORDERED: FLOMAX0.4 MG PO (20:18)
== END 2023-02-06 20:54 | disposition home or self-care (01) ==
LOC: ED 18:29
PROVIDERS: Nurse Practitioner Family
DX: N20.0 Calculus of kidney (principal); R11.0 Nausea; K21.9 Gastro-esophageal reflux disease without esophagitis; I10 Essential (primary) hypertension; Z98.890 Other specified postprocedural states

== ENCOUNTER → 2023-04-12 | Outpatient (CLI) | payer OTHER ==
[~2023-04-12] MED LIST changes: +ONDANSETRON4 MG SL
[2023-04-12 12:38] LABS: BASO # 0.1 10*3/uL (0.0-0.1); EOS # 0.1 10*3/uL (0.0-0.4); EOS % 1.5 % (1.0-4.0); HEMATOCRIT 43.4 % (37.0-47.0); LYMPH # 3.4 10*3/uL (1.3-4.4); LYMPH % 37.4 % (27.0-41.0); MEAN CORPUSCULAR HGB 30.4 pg (27.0-31.0); MEAN CORPUSCULAR HGB CONC 33.4 g/dl (33.0-37.0); MEAN PLATELET VOLUME 9.4 fl (9.6-12.3); MONO # 0.5 10*3/uL (0.1-1.0); MONO % 5.6 % (3.0-9.0); NEUT % 54.2 % (47.0-73.0); PLATELET COUNT AUTOMATED 256 10*3/uL (130-400); RED BLOOD COUNT 4.77 10*6/uL (4.10-5.10); RED CELL DISTRI WIDTH 13.1 % (0-14.5); WHITE BLOOD COUNT 9.1 10*3/uL (4.8-10.8)
[2023-04-12 13:11] LABS: ALKALINE PHOSPHATASE 79 U/L (46-116); BUN 11 mg/dl (9-23); CHLORIDE 106 mmol/L (98-107); CHOLESTEROL 236 mg/dL (<200); LDL CHOLESTEROL 156 mg/dL (9-159); SGPT/ALT 20 U/L (10-49); TOTAL PROTEIN 7.3 gm/dL (6.0-8.0); TRIGLYCERIDES 152 mg/dl (<150)
== END | disposition home or self-care (01) ==
LOC: LAB 12:22
PROVIDERS: ATTEND Nurse Practitioner Family
DX: E11.65 Type 2 diabetes mellitus with hyperglycemia (principal); I10 Essential (primary) hypertension; E78.2 Mixed hyperlipidemia

== ENCOUNTER 2023-05-28 15:28 | Emergency (ER) | payer OTHER ==
[~2023-05-28] VITALS: Ht 162.5 cm; Wt 111.1 kg
[2023-05-28] MEDS ORDERED: BUSPAR5 MG PO (15:56)
[2023-05-28] MEDS ORDERED: METFORMIN HYDR500 MG PO (15:57)
[2023-05-28] MEDS ORDERED: GLIPIZIDE2.5 MG PO (15:57)
[2023-05-28] MEDS ORDERED: ROSUVASTATIN CA20 MG PO (15:58)
[2023-05-28] MEDS ORDERED: ESCITALOPRAM OX20 MG PO (15:58)
[2023-05-28] MEDS ORDERED: MONTELUKAST SOD10 MG PO (15:58)
[2023-05-28] MEDS ORDERED: LISINOPRIL2.5 MG PO (15:58)
[2023-05-28] MEDS ORDERED: VITAMIN D3125 MCG PO (15:59)
[2023-05-28] MEDS ORDERED: Synthroid,Levo25 MCG PO (15:59)
[2023-05-28] MEDS ORDERED: HYDROXYZINE HCL25 MG PO (16:01)
[2023-05-28 16:32] LABS: BASO # 0.1 10*3/uL (0.0-0.1); BASO % 0.6 % (0.0-1.0); EOS # 0.1 10*3/uL (0.0-0.4); EOS % 1.2 % (1.0-4.0); HEMATOCRIT 43.5 % (37.0-47.0); LYMPH # 3.8 10*3/uL (1.3-4.4); LYMPH % 37.2 % (27.0-41.0); MEAN CELL VOLUME 90.1 fl (81.0-99.0); MEAN CORPUSCULAR HGB 29.8 pg (27.0-31.0); MEAN CORPUSCULAR HGB CONC 33.1 g/dl (33.0-37.0); MEAN PLATELET VOLUME 9.6 fl (9.6-12.3); MONO # 0.6 10*3/uL (0.1-1.0); NEUT # 5.5 10*3/uL (2.3-7.9); NEUT % 54.7 % (47.0-73.0); PLATELET COUNT AUTOMATED 289 10*3/uL (130-400); RED BLOOD COUNT 4.83 10*6/uL (4.10-5.10); RED CELL DISTRI WIDTH 12.9 % (0-14.5); WHITE BLOOD COUNT 10.1 10*3/uL (4.8-10.8)
[2023-05-28 16:53] LABS: ALKALINE PHOSPHATASE 91 U/L (46-116); BUN 8 mg/dl (9-23); CHLORIDE 104 mmol/L (98-107); LIPASE 26 U/L (12-53); POTASSIUM 3.9 mmol/L (3.4-5.1); SGPT/ALT 19 U/L (5-49); TOTAL PROTEIN 7.7 gm/dL (6.0-8.0)
[2023-05-28 18:19] LABS: BILIRUBIN Negative (Negative); BLOOD Negative (Negative); CLARITY Clear (Clear); COLOR Yellow (Yellow); GLUCOSE Negative (Negative); KETONE Negative (Negative); LEUKO ESTERASE Negative (Negative); NITRITE Negative (Negative)
[2023-05-28 18:29] LABS: MUCOUS 1+
== END 2023-05-28 19:21 | disposition home or self-care (01) ==
LOC: ED 15:28
PROVIDERS: Nurse Practitioner Family
DX: N83.291 Other ovarian cyst, right side (principal); N20.0 Calculus of kidney; E11.9 Type 2 diabetes mellitus without complications; K21.9 Gastro-esophageal reflux disease without esophagitis; E78.2 Mixed hyperlipidemia; E66.01 Morbid (severe) obesity due to excess calories; Z87.42 Personal history of other diseases of the female genital tract; Z79.899 Other long term (current) drug therapy; Z87.442 Personal history of urinary calculi; Z68.32 Body mass index [BMI] 32.0-32.9, adult

== ENCOUNTER → 2023-11-15 | Outpatient (CLI) | payer OTHER ==
[~2023-11-15] MED LIST changes: +BUSPAR5 MG PO; +ESCITALOPRAM OX20 MG PO; +GLIPIZIDE2.5 MG PO; +HYDROXYZINE HCL25 MG PO; +LISINOPRIL2.5 MG PO; +METFORMIN HYDR500 MG PO; +MONTELUKAST SOD10 MG PO; +ROSUVASTATIN CA20 MG PO; +Synthroid,Levo25 MCG PO; +VITAMIN D3125 MCG PO
[2023-11-15 12:28] LABS: BASO # 0.1 10*3/uL (0.0-0.1); BASO % 0.9 % (0.0-1.0); EOS # 0.2 10*3/uL (0.0-0.4); EOS % 2.4 % (1.0-4.0); HEMATOCRIT 46.1 % (37.0-47.0); LYMPH # 2.9 10*3/uL (1.3-4.4); LYMPH % 34.9 % (27.0-41.0); MEAN CELL VOLUME 92.2 fl (81.0-99.0); MEAN CORPUSCULAR HGB CONC 31.5 g/dl (33.0-37.0); MEAN PLATELET VOLUME 9.7 fl (9.6-12.3); MONO # 0.5 10*3/uL (0.1-1.0); MONO % 6.6 % (3.0-9.0); NEUT # 4.5 10*3/uL (2.3-7.9); PLATELET COUNT AUTOMATED 258 10*3/uL (130-400); RED CELL DISTRI WIDTH 12.8 % (0-14.5); WHITE BLOOD COUNT 8.2 10*3/uL (4.8-10.8)
[2023-11-15 12:34] LABS: URINE CREATININE RANDOM 175.29 mg/dL
[2023-11-15 12:55] LABS: ALKALINE PHOSPHATASE 84 U/L (46-116); BUN 9 mg/dl (9-23); CHLORIDE 103 mmol/L (98-107); CHOLESTEROL 247 mg/dL (<200); LDL CHOLESTEROL 155 mg/dL (9-159); POTASSIUM 4.5 mmol/L (3.4-5.1); SGPT/ALT 26 U/L (5-49); TOTAL PROTEIN 7.4 gm/dL (6.0-8.0); TRIGLYCERIDES 209 mg/dl (<150)
== END | disposition home or self-care (01) ==
LOC: LAB 11:48
PROVIDERS: ATTEND Nurse Practitioner Family
DX: I10 Essential (primary) hypertension (principal); E03.9 Hypothyroidism, unspecified; E11.65 Type 2 diabetes mellitus with hyperglycemia; E78.2 Mixed hyperlipidemia

== ENCOUNTER 2024-01-02 20:22 | Emergency (ER) | payer OTHER ==
[~2024-01-02] VITALS: Ht 162.5 cm; Wt 116.6 kg
[2024-01-02] MEDS ORDERED: Ketorolac Tromethamine 60 MG/2 ML VIAL IM ONE (21:30)
[2024-01-02] MEDS ORDERED: NYSTATIN 15 GM BOT T ONE (21:30)
[2024-01-02] MEDS ORDERED: METHOCARBAMOL 750 MG TAB PO ONE (21:30)
[2024-01-02] MEDS ORDERED: NAPROSYN500 MG PO (21:56)
== END 2024-01-02 22:13 | disposition home or self-care (01) ==
LOC: ED 20:22
DX: S39.012A Strain of muscle, fascia and tendon of lower back, initial encounter (principal); L30.4 Erythema intertrigo; K21.9 Gastro-esophageal reflux disease without esophagitis; I10 Essential (primary) hypertension; F41.9 Anxiety disorder, unspecified; F32.A Depression, unspecified; Z98.890 Other specified postprocedural states; X58.XXXA Exposure to other specified factors, initial encounter; Y93.89 Activity, other specified; Y92.009 Unspecified place in unspecified non-institutional (private) residence as the place of occurrence of the external cause; Y99.8 Other external cause status

== ENCOUNTER → 2024-02-20 | Outpatient (CLI) | payer OTHER ==
[2024-02-20 09:10] LABS: BASO # 0.1 10*3/uL (0.0-0.1); BASO % 0.9 % (0.0-1.0); EOS # 0.3 10*3/uL (0.0-0.4); EOS % 3.7 % (1.0-4.0); HEMATOCRIT 43.7 % (37.0-47.0); LYMPH % 32.3 % (27.0-41.0); MEAN CELL VOLUME 90.5 fl (81.0-99.0); MEAN CORPUSCULAR HGB CONC 33.2 g/dl (33.0-37.0); MEAN PLATELET VOLUME 9.5 fl (9.6-12.3); MONO # 0.5 10*3/uL (0.1-1.0); MONO % 5.1 % (3.0-9.0); NEUT # 5.3 10*3/uL (2.3-7.9); NEUT % 57.6 % (47.0-73.0); PLATELET COUNT AUTOMATED 272 10*3/uL (130-400); RED BLOOD COUNT 4.83 10*6/uL (4.10-5.10); WHITE BLOOD COUNT 9.2 10*3/uL (4.8-10.8)
[2024-02-20 09:53] LABS: ALKALINE PHOSPHATASE 76 U/L (46-116); BUN 14 mg/dl (9-23); CHLORIDE 102 mmol/L (98-107); CHOLESTEROL 239 mg/dL (<200); LDL CHOLESTEROL 148 mg/dL (9-159); SGPT/ALT 20 U/L (5-49); TOTAL PROTEIN 7.3 gm/dL (6.0-8.0); TRIGLYCERIDES 181 mg/dl (<150)
== END | disposition home or self-care (01) ==
LOC: LAB 08:33
PROVIDERS: ATTEND Nurse Practitioner Family
DX: I10 Essential (primary) hypertension (principal); E11.65 Type 2 diabetes mellitus with hyperglycemia; E78.2 Mixed hyperlipidemia; E03.9 Hypothyroidism, unspecified; E55.9 Vitamin D deficiency, unspecified

== ENCOUNTER → 2024-02-24 | Outpatient (CLI) | payer OTHER | END | disposition home or self-care (01) | LOC: US 01:48 | PROVIDERS: ATTEND Nurse Practitioner Family | DX: K76.0 Fatty (change of) liver, not elsewhere classified (principal); R16.0 Hepatomegaly, not elsewhere classified; I10 Essential (primary) hypertension; E11.9 Type 2 diabetes mellitus without complications; E78.5 Hyperlipidemia, unspecified ==

== ENCOUNTER 2024-03-08 00:46 | Emergency (ER) | payer OTHER ==
[~2024-03-08] VITALS: Ht 162.5 cm; Wt 112.9 kg
[2024-03-08] MEDS ORDERED: MG-AL HYDROXIDE/SIMETICONE 30 ML UDC PO ONE (01:30)
[2024-03-08] MEDS ORDERED: Dicyclomine Hydrochloride 20 MG/10 ML OSYR PO ONE (01:30)
[2024-03-08] MEDS ORDERED: Lidocaine Hydrochloride 15 ML UDC PO ONE (01:30)
[2024-03-08 01:44] LABS: BASO # 0.1 10*3/uL (0.0-0.1); BASO % 0.6 % (0.0-1.0); EOS # 0.4 10*3/uL (0.0-0.4); EOS % 3.7 % (1.0-4.0); HEMATOCRIT 41.4 % (37.0-47.0); LYMPH % 36.2 % (27.0-41.0); MEAN CELL VOLUME 91.6 fl (81.0-99.0); MEAN CORPUSCULAR HGB 29.6 pg (27.0-31.0); MEAN CORPUSCULAR HGB CONC 32.4 g/dl (33.0-37.0); MEAN PLATELET VOLUME 9.1 fl (9.6-12.3); MONO # 0.7 10*3/uL (0.1-1.0); MONO % 6.7 % (3.0-9.0); NEUT # 5.8 10*3/uL (2.3-7.9); NEUT % 52.4 % (47.0-73.0); PLATELET COUNT AUTOMATED 234 10*3/uL (130-400); RED BLOOD COUNT 4.52 10*6/uL (4.10-5.10); RED CELL DISTRI WIDTH 12.8 % (0-14.5)
[2024-03-08 02:08] LABS: ALKALINE PHOSPHATASE 69 U/L (46-116); BUN 9 mg/dl (9-23); CHLORIDE 106 mmol/L (98-107); SGPT/ALT 21 U/L (5-49); TOTAL PROTEIN 6.7 gm/dL (6.0-8.0)
[2024-03-08 02:12] LABS: BILIRUBIN Negative (Negative); BLOOD Negative (Negative); CLARITY Cloudy (Clear); COLOR Yellow (Yellow); GLUCOSE Negative (Negative); KETONE Negative (Negative); LEUKO ESTERASE 1+ (Negative); NITRITE Negative (Negative); PH 5.5 (4.5-8.0); UROBILINOGEN 0.2 E.U./dl (0.0-1.0)
[2024-03-08 02:21] LABS: BACTERIA 2+; EPITHELIAL CELLS 41-50
[2024-03-08] MEDS ORDERED: CEPHALEXIN500 M1 PO (02:40)
== END 2024-03-08 02:57 | disposition home or self-care (01) ==
LOC: ED 00:46
PROVIDERS: Emergency Medicine
DX: N39.0 Urinary tract infection, site not specified (principal); E11.9 Type 2 diabetes mellitus without complications; I10 Essential (primary) hypertension; K21.9 Gastro-esophageal reflux disease without esophagitis; E78.00 Pure hypercholesterolemia, unspecified; F41.9 Anxiety disorder, unspecified; F32.A Depression, unspecified; Z98.890 Other specified postprocedural states

== ENCOUNTER 2024-03-29 23:30 | Emergency (ER) | payer OTHER ==
[~2024-03-29] VITALS: Ht 162.5 cm; Wt 117.9 kg
[2024-03-29] MEDS ORDERED: Lidocaine Hydrochloride 15 ML UDC PO STA (23:52)
[2024-03-29] MEDS ORDERED: Dicyclomine Hydrochloride 20 MG/10 ML OSYR PO STA (23:52)
[2024-03-29] MEDS ORDERED: MG-AL HYDROXIDE/SIMETICONE 30 ML UDC PO STA (23:52)
[2024-03-30 00:14] LABS: BASO # 0.1 10*3/uL (0.0-0.1); BASO % 0.9 % (0.0-1.0); EOS # 0.3 10*3/uL (0.0-0.4); EOS % 2.5 % (1.0-4.0); HEMATOCRIT 44.2 % (37.0-47.0); LYMPH # 4.4 10*3/uL (1.3-4.4); LYMPH % 39.7 % (27.0-41.0); MEAN CELL VOLUME 91.5 fl (81.0-99.0); MEAN CORPUSCULAR HGB 29.6 pg (27.0-31.0); MEAN CORPUSCULAR HGB CONC 32.4 g/dl (33.0-37.0); MEAN PLATELET VOLUME 9.5 fl (9.6-12.3); MONO # 0.7 10*3/uL (0.1-1.0); MONO % 6.7 % (3.0-9.0); NEUT # 5.5 10*3/uL (2.3-7.9); NEUT % 49.8 % (47.0-73.0); PLATELET COUNT AUTOMATED 285 10*3/uL (130-400); RED BLOOD COUNT 4.83 10*6/uL (4.10-5.10); RED CELL DISTRI WIDTH 12.7 % (0-14.5)
[2024-03-30 00:27] LABS: ACT PARTIAL THROMBO TIME 25.4 SECONDS (20.0-32.1)
[2024-03-30 00:37] LABS: ALKALINE PHOSPHATASE 82 U/L (46-116); BUN 14 mg/dl (9-23); CHLORIDE 103 mmol/L (98-107); POTASSIUM 3.5 mmol/L (3.4-5.1); SGPT/ALT 25 U/L (5-49); TOTAL PROTEIN 7.4 gm/dL (6.0-8.0)
[2024-03-30] MEDS ORDERED: Dexamethasone Sodium Phospha 20 MG/5 ML VIAL IM ONE (00:40)
== END 2024-03-30 02:11 | disposition home or self-care (01) ==
LOC: ED 23:30
PROVIDERS: Internal Medicine
DX: K21.9 Gastro-esophageal reflux disease without esophagitis (principal); R07.89 Other chest pain; I10 Essential (primary) hypertension; F41.9 Anxiety disorder, unspecified; Z98.890 Other specified postprocedural states

== ENCOUNTER 2024-04-22 18:39 | Emergency (ER) | payer OTHER ==
[~2024-04-22] VITALS: Ht 162.5 cm; Wt 119.7 kg
[2024-04-22] MEDS ORDERED: Acetaminophen/Hydrocodone HP 10/325 PO ONE (19:25)
[2024-04-22] MEDS ORDERED: Cyclobenzaprine Hydrochlorid 10 MG TAB PO ONE (19:30)
[2024-04-22 20:00] LABS: BILIRUBIN Negative (Negative); BLOOD Negative (Negative); CLARITY Clear (Clear); COLOR Yellow (Yellow); GLUCOSE 3+ (Negative); KETONE Negative (Negative); LEUKO ESTERASE Negative (Negative); NITRITE Negative (Negative); PH 5.5 (4.5-8.0); SPECIFIC GRAVITY 1.025 (1.001-1.030)
[2024-04-22 20:09] LABS: BACTERIA 1+
[2024-04-22] MEDS ORDERED: CYCLOBENZAPRINE10 MG PO (20:18)
[2024-04-22] MEDS ORDERED: Motrin,Rufen800 MG PO (20:24)
== END 2024-04-22 20:49 | disposition home or self-care (01) ==
LOC: ED 18:39
PROVIDERS: Nurse Practitioner Family
DX: R10.31 Right lower quadrant pain (principal); M54.50 Low back pain, unspecified; K21.9 Gastro-esophageal reflux disease without esophagitis; I10 Essential (primary) hypertension; F41.9 Anxiety disorder, unspecified; F32.A Depression, unspecified; Z98.890 Other specified postprocedural states

== ENCOUNTER → 2024-05-24 | Outpatient (CLI) | payer OTHER ==
[~2024-05-24] MED LIST changes: +CYCLOBENZAPRINE10 MG PO; +Motrin,Rufen800 MG PO
== END | disposition home or self-care (01) ==
LOC: US 00:08
PROVIDERS: ATTEND Nurse Practitioner Family
DX: M79.605 Pain in left leg (principal)

== ENCOUNTER → 2024-11-06 | Outpatient (CLI) | payer OTHER ==
[2024-11-06 11:30] LABS: BASO # 0.1 10*3/uL (0.0-0.1); BASO % 0.7 % (0.0-1.0); EOS # 0.3 10*3/uL (0.0-0.4); EOS % 3.7 % (1.0-4.0); MEAN CELL VOLUME 91.1 fl (81.0-99.0); MEAN CORPUSCULAR HGB 29.4 pg (27.0-31.0); MEAN CORPUSCULAR HGB CONC 32.3 g/dl (33.0-37.0); MEAN PLATELET VOLUME 9.1 fl (9.6-12.3); MONO # 0.6 10*3/uL (0.1-1.0); MONO % 6.2 % (3.0-9.0); NEUT # 5.1 10*3/uL (2.3-7.9); NEUT % 56.1 % (47.0-73.0); PLATELET COUNT AUTOMATED 277 10*3/uL (130-400); RED BLOOD COUNT 5.27 10*6/uL (4.10-5.10); RED CELL DISTRI WIDTH 12.8 % (0-14.5)
[2024-11-06 12:23] LABS: ALKALINE PHOSPHATASE 82 U/L (46-116); BUN 13 mg/dl (9-23); CHLORIDE 101 mmol/L (98-107); CHOLESTEROL 239 mg/dL (<200); LDL CHOLESTEROL 147 mg/dL (9-159); POTASSIUM 4.1 mmol/L (3.4-5.1); SGPT/ALT 25 U/L (5-49); TOTAL PROTEIN 7.7 gm/dL (6.0-8.0); TRIGLYCERIDES 156 mg/dl (<150)
== END | disposition home or self-care (01) ==
LOC: LAB 11:14
PROVIDERS: ATTEND Nurse Practitioner Family
DX: I10 Essential (primary) hypertension (principal); E11.65 Type 2 diabetes mellitus with hyperglycemia; E66.01 Morbid (severe) obesity due to excess calories; E55.9 Vitamin D deficiency, unspecified; E78.2 Mixed hyperlipidemia

== ENCOUNTER 2024-11-09 20:31 | Emergency (ER) | payer OTHER ==
[2024-11-09] MEDS ORDERED: Lidocaine Hydrochloride 15 ML UDC PO STA (20:50)
[2024-11-09] MEDS ORDERED: Dicyclomine Hydrochloride 20 MG/10 ML OSYR PO STA (20:50)
[2024-11-09] MEDS ORDERED: MG-AL HYDROXIDE/SIMETICONE 30 ML UDC PO STA (20:50)
[2024-11-09] MEDS ORDERED: TRULICITY0.75 MG/0. SC (21:15)
[2024-11-09 21:17] LABS: BASO # 0.1 10*3/uL (0.0-0.1); BASO % 0.6 % (0.0-1.0); EOS # 0.2 10*3/uL (0.0-0.4); EOS % 1.5 % (1.0-4.0); HEMATOCRIT 45.1 % (37.0-47.0); MEAN CELL VOLUME 90.4 fl (81.0-99.0); MEAN CORPUSCULAR HGB 29.7 pg (27.0-31.0); MEAN CORPUSCULAR HGB CONC 32.8 g/dl (33.0-37.0); MEAN PLATELET VOLUME 9.3 fl (9.6-12.3); MONO # 0.7 10*3/uL (0.1-1.0); MONO % 6.5 % (3.0-9.0); NEUT # 6.3 10*3/uL (2.3-7.9); NEUT % 59.1 % (47.0-73.0); PLATELET COUNT AUTOMATED 276 10*3/uL (130-400); RED BLOOD COUNT 4.99 10*6/uL (4.10-5.10); RED CELL DISTRI WIDTH 12.8 % (0-14.5); WHITE BLOOD COUNT 10.6 10*3/uL (4.8-10.8)
[2024-11-09 21:32] LABS: ACT PARTIAL THROMBO TIME 25.6 SECONDS (20.0-32.1)
[2024-11-09 21:36] LABS: POTASSIUM 4.1 mmol/L (3.4-5.1)
[2024-11-09] MEDS ORDERED: PROTONIX20 MG PO (23:55)
== END 2024-11-10 00:05 | disposition home or self-care (01) ==
LOC: ED 20:31
PROVIDERS: Internal Medicine
DX: K21.9 Gastro-esophageal reflux disease without esophagitis (principal); Z79.899 Other long term (current) drug therapy; Z79.84 Long term (current) use of oral hypoglycemic drugs

== ENCOUNTER → 2025-01-25 | Outpatient (CLI) | payer OTHER ==
[~2025-01-25] MED LIST changes: +PROTONIX20 MG PO; +TRULICITY0.75 MG/0. SC
== END | disposition home or self-care (01) ==
LOC: LAB 11:05
PROVIDERS: ATTEND Nurse Practitioner Family
DX: E11.9 Type 2 diabetes mellitus without complications (principal); E55.9 Vitamin D deficiency, unspecified